=== PATIENT | male | born 1990 | race Caucasian/White ===

== ENCOUNTER 2018-10-29 08:26 | Emergency (ER) | payer BC, OTHER ==
[2018-10-29] MEDS: BACITRACIN 500 U/GM OIN TOP ONE (09:15)
[2018-10-29] MEDS ORDERED: LIDOCAINE HCL 1% MPF 30 SOL ONE (09:16)
[2018-10-29] MEDS ORDERED: BACITRACIN 500 U/GM OIN TOP ONE (09:17)
[2018-10-29] MEDS ORDERED: TDAP VACCINE 0.5 ML SUS IM ONE (09:17)
[2018-10-29] MEDS: LIDOCAINE BUFFERED 1% 50 ML SOL SC ONE (09:30)
[2018-10-29 09:41] VITALS: TEMP 97.3
[2018-10-29] MEDS: TDAP VACCINE 0.5 ML SUS IM ONE (09:45)
[2018-10-29 10:15] VITALS: BP 139/90; PULSE 74; RESP 18; O2SAT 99
== END 2018-10-29 09:58 | disposition home or self-care (01) | DRG 605 ==
LOC: ED 08:26
DX: S91.012A Laceration without foreign body, left ankle, initial encounter (principal); W26.9XXA Contact with unspecified sharp object(s), initial encounter
CPT/HCPCS: 12002; 73610; 90471; 90715; 99284; A6402; A9270-GY; J2001